=== PATIENT | male | born 1980 | race Caucasian/White ===

== ENCOUNTER 2021-07-25 10:30 | Emergency (ER) | payer MEDICAID, MEDICARE ==
[~2021-07-25] VITALS: Ht 175 cm; Wt 99.7 kg
[~2021-07-25 10:30] MED LIST: AMOX500C2 PO; HYDR1CAP2 PO; IBP800T PO; LEVO500T69 PO; NAPR-243 PO; NEOM10DR11 OT; TRM50T PO
[2021-07-25] MEDS ORDERED: ASPIRIN 81 MG CHEW (CHILDREN'S ASA) ONE (10:42)
[2021-07-25] MEDS ORDERED: KETOROLAC 30 MG/ML VIAL ONE (10:42)
--- NOTE | 2021-07-25 10:44 | ED General ---
General Stated Complaint: CHEST/RIGHT ARM PAIN Source of Information: Patient Exam Limitations: No Limitations History of Present Illness Date Seen by Provider: Jul 25, 2021 Time Seen by Provider: 10:42 Initial Comments To ER with reports of squeezing chest pain for 2 days that now radiates down the right arm. He smokes 1.5 pack of cigarettes per day, chronic cough. No fevers. He is deaf and nonverbal. Timing/Duration: 1-2 Days Severity: Moderate Associated Systoms: Chest Pain Allergies and Home Medications Allergies Coded Allergies: No Known Drug Allergies (Unverified , 12/21/09) Patient Home Medication List Home Medication List Reviewed: Yes Hydrocodone/Acetaminophen (Hydrocodone-Acetamin 5-325 mg) 1 Each Tablet, 1 TAB PO Q4H PRN for PAIN-MODERATE (5-7) Prescribed by: DULCE GEORGE on 07/25/21 1141 Ibuprofen (Motrin) 800 Mg Tab, 800 MG PO TID Prescribed by: HI GILL on 10/26/12 1805 Naproxen (Naprosyn) 500 Mg Tablet, 500 MG PO BID Prescribed by: DULCE GEORGE on 07/25/21 1141 Neomycin Zelaya/Colist/Hc/Thonzon (Cortisporin-Tc Ear Susp) 10 Ml Drops.susp, 10 ML OT QID Prescribed by: HI GILL on 10/26/15 0954 Review of Systems Review of Systems Constitutional: see HPI EENTM: see HPI Respiratory: no symptoms reported Cardiovascular: see HPI, chest pain Genitourinary: no symptoms reported Musculoskeletal: no symptoms reported Skin: no symptoms reported Psychiatric/Neurological: No Symptoms Reported Hematologic/Lymphatic: No Symptoms Reported Immunological/Allergic: no symptoms reported Past Irjrbxz-Zipdnm-Pxbqlb Hx Past Medical History Hearing Impairment: Deaf Physical Exam Vital Signs Vital Signs - First Documented 07/25/21 10:40 Temp 36.9 Pulse 68 Resp 20 B/P (MAP) 125/83 (97) Pulse Ox 98 Capillary Refill : Height, Weight, BMI Height: 5'10" Weight: 200lbs. oz. 90.975420xj; 28.69 BMI Method: General Appearance: No Apparent Distress, WD/WN Eyes: Bilateral Eye Normal Inspection, Bilateral Eye PERRL, Bilateral Eye EOMI HEENT: PERRL/EOMI, TMs Normal Neck: Full Range of Motion, Normal Inspection Respiratory: No Accessory Muscle Use, No Respiratory Distress Cardiovascular: Regular Rate, Rhythm, Normal Peripheral Pulses Gastrointestinal: Normal Bowel Sounds, Non Tender, Soft Extremity: Normal Capillary Refill, Normal Inspection Neurologic/Psychiatric: Alert, Oriented x3 Skin: Normal Color, Warm/Dry Progress/Results/Core Measures Suspected Sepsis SIRS Temperature: Pulse: Respiratory Rate: Laboratory Tests 07/25/21 10:54: White Blood Count 6.4 Blood Pressure / Mean: Laboratory Tests 07/25/21 10:54: Creatinine 1.04, INR Comment 1.0, Platelet Count 212, Total Bilirubin 1.3H Results/Orders Lab Results Laboratory Tests Test 07/25/21 10:54 Range/Units White Blood Count 6.4 4.3-11.0 10^3/uL Red Blood Count 5.29 4.30-5.52 10^6/uL Hemoglobin 16.5 13.3-17.7 g/dL Hematocrit 48 40-54 % Mean Corpuscular Volume 91 80-99 fL Mean Corpuscular Hemoglobin 31 25-34 pg Mean Corpuscular Hemoglobin Concent 34 32-36 g/dL Red Cell Distribution Width 12.5 10.0-14.5 % Platelet Count 212 130-400 10^3/uL Mean Platelet Volume 10.9 9.0-12.2 fL Immature Granulocyte % (Auto) 0 % Neutrophils (%) (Auto) 57 42-75 % Lymphocytes (%) (Auto) 30 12-44 % Monocytes (%) (Auto) 8 0-12 % Eosinophils (%) (Auto) 5 0-10 % Basophils (%) (Auto) 1 0-10 % Neutrophils # (Auto) 3.7 1.8-7.8 10^3/uL Lymphocytes # (Auto) 1.9 1.0-4.0 10^3/uL Monocytes # (Auto) 0.5 0.0-1.0 10^3/uL Eosinophils # (Auto) 0.3 0.0-0.3 10^3/uL Basophils # (Auto) 0.1 0.0-0.1 10^3/uL Immature Granulocyte # (Auto) 0.0 0.0-0.1 10^3/uL Prothrombin Time 13.4 12.2-14.7 SEC INR Comment 1.0 0.8-1.4 Activated Partial Thromboplast Time 27 24-35 SEC Sodium Level 138 135-145 MMOL/L Potassium Level 3.7 3.6-5.0 MMOL/L Chloride Level 105 98-107 MMOL/L Carbon Dioxide Level 24 21-32 MMOL/L Anion Gap 9 5-14 MMOL/L Blood Urea Nitrogen 9 7-18 MG/DL Creatinine 1.04 0.60-1.30 MG/DL Estimat Glomerular Filtration Rate 79 BUN/Creatinine Ratio 9 Glucose Level 108 H 70-105 MG/DL Calcium Level 8.8 8.5-10.1 MG/DL Corrected Calcium 8.7 8.5-10.1 MG/DL Magnesium Level 1.9 1.6-2.4 MG/DL Total Bilirubin 1.3 H 0.1-1.0 MG/DL Aspartate Amino Transf (AST/SGOT) 23 5-34 U/L Alanine Aminotransferase (ALT/SGPT) 36 0-55 U/L Alkaline Phosphatase 73 40-136 U/L Myoglobin 59.4 10.0-92.0 NG/ML Troponin I < 0.028 <0.028 NG/ML Total Protein 6.8 6.4-8.2 GM/DL Albumin 4.1 3.2-4.5 GM/DL My Orders Orders - DULCE GEORGE APRN Cbc With Automated Diff (07/25/21 10:41) Magnesium (07/25/21 10:41) Chest 1 View, Ap/Pa Only (07/25/21 10:41) Ekg Tracing (07/25/21 10:41) Comprehensive Metabolic Panel (07/25/21 10:41) Myoglobin Serum (07/25/21 10:41) Protime With Inr (07/25/21 10:41) Partial Thromboplastin Time (07/25/21 10:41) O2 (07/25/21 10:41) Monitor-Rhythm Ecg Trace Only (07/25/21 10:41) Lipid Panel (07/26/21 06:00) Ed Iv/Invasive Line Start (07/25/21 10:41) Troponin I Baljinder (07/25/21 10:41) Aspirin Chewable Tablet (Baby Aspirin Ch (07/25/21 10:45) Ketorolac Injection (Toradol Injection) (07/25/21 10:45) Aspirin Chewable Tablet (Baby Aspirin Ch (07/25/21 10:42) Ketorolac Injection (Toradol Injection) (07/25/21 10:42) Medications Given in ED Current Medications Medications Dose Ordered Sig/Daja Route Start Time Stop Time Status Last Admin Dose Admin Aspirin 324 mg ONCE ONCE PO 07/25/21 10:45 07/25/21 10:46 DC 07/25/21 10:49 324 MG Ketorolac Tromethamine 15 mg ONCE ONCE IVP 07/25/21 10:45 07/25/21 10:46 DC 07/25/21 10:49 15 MG Vital Signs/I&O 07/25/21 10:40 Temp 36.9 Pulse 68 Resp 20 B/P (MAP) 125/83 (97) Pulse Ox 98 Capillary Refill : Departure Communication (Admissions) Family Conversation NAME: QUOC REYES MED REC#: [id number] PT STATUS: REG ER : 1980 PHYSICIAN: DULCE GEORGE APRN ADMIT DATE: 07/25/21/ER Draft Date of Exam:07/25/21 CHEST 1 VIEW, AP/PA ONLY Indication: Chest pain. Comparison: None. Discussion: Single portable upright view of the chest was obtained. Low lung volumes. Normal heart size. No consolidation, pleural fluid, or pneumothorax. No osseous abnormality. Impression: 1. Negative chest. Dictated on workstation # [id number] Dict: 07/25/21 1112 Trans: 07/25/21 1115 [facility] [id number] Interpreted by: SARA MYERS MD Electronically signed by: EKG shows rate of [address] segment change no ectopy 1138-Toradol took his pain completely away. 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 Movement made the pain worse in his arm. He was tender over the pectoralis muscle. We'll give him a few days off work to rest the arm, naproxen and hydrocodone for pain, Impression Primary Impression: Pectoralis muscle strain Disposition: 01 HOME, SELF-CARE Condition: Stable Departure-Patient Inst. Decision time for Depature: 11:39 Referrals: KIRILL SINGH DO (PCP/Family) Primary Care Physician Patient Instructions: Muscle Strain (DC) Add. Discharge Instructions: 1. Try not to move your right arm much for the next few days. Certainly don't lift anything with it. This is a muscle strain from overuse so the best treatment is rest. Take anti-inflammatories and pain medication as directed. Return to ER for any worsening. Scripts Hydrocodone/Acetaminophen (Hydrocodone-Acetamin 5-325 mg) 1 Each Tablet 1 TAB PO Q4H PRN for PAIN-MODERATE (5-7), #10 TAB Prov: DULCE GEORGE APRN 07/25/21 Naproxen (Naprosyn) 500 Mg Tablet 500 MG PO BID, #30 TAB 0 Refills Prov: DULCE GEORGE APRN 07/25/21 DULCE GEORGE APRN Jul 25, 2021 10:44
[2021-07-25] MEDS ORDERED: KETOROLAC 30 MG/ML VIAL IVP ONE (10:45)
[2021-07-25] MEDS ORDERED: ASPIRIN 81 MG CHEW (CHILDREN'S ASA) PO ONE (10:45)
[2021-07-25 11:01] LABS: BASOPHILS # (AUTO) 0.1 10^3/uL (0.0-0.1); BASOPHILS % (AUTO) 1 % (0-10); EOSINOPHILS # (AUTO) 0.3 10^3/uL (0.0-0.3); EOSINOPHILS % (AUTO) 5 % (0-10); HEMATOCRIT 48 % (40-54); HEMOGLOBIN 16.5 g/dL (13.3-17.7); LYMPHOCYTES # (AUTO) 1.9 10^3/uL (1.0-4.0); LYMPHOCYTES % (AUTO) 30 % (12-44); MEAN CORPUSCULAR HEMOGLOBIN 31 pg (25-34); MEAN CORPUSCULAR HGB CONC 34 g/dL (32-36); MEAN CORPUSCULAR VOLUME 91 fL (80-99); MEAN PLATELET VOLUME 10.9 fL (9.0-12.2); MONOCYTES # (AUTO) 0.5 10^3/uL (0.0-1.0); MONOCYTES % (AUTO) 8 % (0-12); NEUTROPHILS # (AUTO) 3.7 10^3/uL (1.8-7.8); NEUTROPHILS % (AUTO) 57 % (42-75); PLATELET COUNT 212 10^3/uL (130-400); WHITE BLOOD COUNT 6.4 10^3/uL (4.3-11.0)
[2021-07-25 11:12] LABS: ALBUMIN 4.1 GM/DL (3.2-4.5); POTASSIUM 3.7 MMOL/L (3.6-5.0); PROTHROMBIN TIME PATIENT 13.4 SEC (12.2-14.7)
[2021-07-25 11:13] LABS: CALCIUM 8.8 MG/DL (8.5-10.1)
[2021-07-25 11:15] LABS: TOTAL PROTEIN 6.8 GM/DL (6.4-8.2)
--- NOTE | 2021-07-25 11:15 | Diagnostic Imaging Report ---
Indication: Chest pain. Comparison: None. Discussion: Single portable upright view of the chest was obtained. Low lung volumes. Normal heart size. No consolidation, pleural fluid, or pneumothorax. No osseous abnormality. Impression: 1. Negative chest. Dictated by: Dictated on workstation # [id number]
[2021-07-25 11:16] LABS: BILIRUBIN,TOTAL 1.3 MG/DL (0.1-1.0)
[2021-07-25 11:18] LABS: CREATININE SERUM 1.04 MG/DL (0.60-1.30)
[2021-07-25 11:21] LABS: MAGNESIUM 1.9 MG/DL (1.6-2.4)
[2021-07-25] MEDS ORDERED: ACHD5005 PO (11:41)
[2021-07-25] MEDS ORDERED: NAPR-1071 PO (11:41)
[2021-07-25 11:52] VITALS: BP 126/95
== END 2021-07-25 11:51 | disposition home or self-care (01) ==
LOC: EDUNIT# 10:30 → ER 10:34
DX: S29.011A Strain of muscle and tendon of front wall of thorax, initial encounter (principal); F17.210 Nicotine dependence, cigarettes, uncomplicated; X58.XXXA Exposure to other specified factors, initial encounter
CPT/HCPCS: 36415; 71045; 80053; 83735; 83874; 84484; 85025; 85610; 85730; 93005; 93041

== ENCOUNTER 2021-11-07 16:42 | Emergency (ER) | payer MEDICARE ==
[~2021-11-07] VITALS: Ht 179 cm; Wt 90.7 kg
[~2021-11-07 16:42] MED LIST changes: +ACHD5005 PO; +NAPR-1071 PO
--- NOTE | 2021-11-07 17:29 | ED EENT ---
History of Present Illness General Chief Complaint: Abdominal/GI Problems Stated Complaint: VOMITING Nursing Triage Note: PATIENT VOMITTING SINCE TUESDAY. STATES BODY ACHES. EYES "SHIFTY" STATES STARTED A NEW JOB. STATES SYMPTOMS STARTED WITH COUGH, FEVER, NOW VOMITTING. Source: patient Exam Limitations: language barrier (ASL) (JHONNY ORTA MED STUDENT) History of Present Illness Date Seen by Provider: Nov 07, 2021 Time Seen by Provider: 17:10 Initial Comments Mr. Reyes is a 41yo male with PMH of deafness who presents to ED today due to vomiting, cough, fever, and eye complaints. He communicates using ASL and air carrier inspector is used. He states that since tuesday or tuesday he had developed a cough that evolved into vomiting all day on tuesday. He estimates that he has vomited around 20 times. He has never experienced anything like this before. He complains of Fever, body aches, decreased appetite, and feeling sleepy. He also has some eye related complaints that started around the same time. His eyes are "shaky" or "shifty" as he describes. He has pain in the left eye and keeps it closed, only using the R eye during the exam. States there is pain associated, he has photophobia as well. Vision in L eye is blurry, says R eye is good an only experiencing minimal, if any, symptoms. Denies medical or surgical history. Smokes and uses THC about once a week. NKDA (JHONNY ORTA MED STUDENT) Allergies and Home Medications Allergies Coded Allergies: No Known Drug Allergies (Unverified , 12/21/09) Patient Home Medication List Home Medication List Reviewed: Yes (RAMÓN BRUCE MD) Benzonatate (Tessalon Perles) 100 Mg Capsule, 200 MG PO TID Prescribed by: RAMÓN NEWMAN on 11/07/21 1849 Hydrocodone/Acetaminophen (Hydrocodone-Acetamin 5-325 mg) 1 Each Tablet, 1 TAB PO Q4H PRN for PAIN-MODERATE (5-7) Prescribed by: DULCE GEORGE on 07/25/21 1141 Ibuprofen (Motrin) 800 Mg Tab, 800 MG PO TID Prescribed by: HI GILL on 10/26/12 1805 Naproxen (Naprosyn) 500 Mg Tablet, 500 MG PO BID Prescribed by: DULCE GEORGE on 07/25/21 1141 Neomycin Zelaya/Colist/Hc/Thonzon (Cortisporin-Tc Ear Susp) 10 Ml Drops.susp, 10 ML OT QID Prescribed by: HI GILL on 10/26/15 0954 Ondansetron (Ondansetron Odt) 4 Mg Tab.rapdis, 4 MG SL Q4H PRN for NAUSEA/VOMITING Prescribed by: RAMÓN NEWMAN on 11/07/211837 Tobramycin/Dexamethasone (Tobradex Eye Drops) 5 Ml Drops.susp, 2 DROPS OP Q6H Prescribed by: RAMÓN NEWMAN on 11/07/211837 Review of Systems Review of Systems Constitutional: No chills; fever Eyes: Blurred Vision; Denies Foreign Body Sensation; Pain, Photophobia, Vision Changes Ears: Denies Dizziness, Denies Pain Nose: denies pain; other (no discharge) Mouth: denies pain, denies swelling Respiratory: cough; No phlegm, No short of breath Cardiovascular: No chest pain, No edema Gastrointestinal: No abdominal pain, No constipation, No diarrhea, No melena; nausea, vomiting Musculoskeletal: No back pain, No joint pain Skin: No lesions, No rash Neurological: Denies Headache, Denies Numbness (JHONNY ORTA STUDENT) Past Poypwqy-Xzbdpv-Mkwffj Hx Patient Social History Tobacco Use?: Yes Tobacco type used: Cigarettes Smoking Status: Current Everyday Smoker Use of E-Cig and/or Vaping dev: No Substance use?: Yes Substance type: Marijuana Substance frequency: Couple times a week Alcohol Use?: No (JHONNY ORTA) Immunizations Up To Date Influenza Vaccine Up-to-Date: No; Not Current (JHONNY ORTA) Past Medical History Surgery/Hospitalization HX: PATIENT G[facility]KO Hearing Impairment: Deaf (JHONNY ORTA STUDENT) Physical Exam Vital Signs Vital Signs - First Documented 11/07/21 16:59 Temp 36.7 Pulse 91 Resp 18 B/P (MAP) 140/103 (115) Pulse Ox 98 O2 Delivery Room Air (RAMÓN BRUCE MD) Height, Weight, BMI Height: 5'10" Weight: 200lbs. oz. 90.862733vp; 28.00 BMI Method: General Appearance: WD/WN, mild distress (uncomfortable) Ears: bilateral ear auricle normal, bilateral ear canal normal, bilateral ear TM normal Nose: normal inspection; No discharge Mouth/Throat: normal mouth inspection, pharynx normal Cardiovascular: normal peripheral pulses, regular rate, rhythm, no edema, no murmur Respiratory: chest non-tender, lungs clear, normal breath sounds Gastrointestinal: normal bowel sounds, non tender, soft Neurologic/Psychiatric: alert, normal mood/affect, oriented x 3 Skin: normal color, warm/dry (MARIVELJHONNY HAYES MED STUDENT) Progress/Results/Core Measures Results/Orders Lab Results Laboratory Tests Test 11/07/21 17:25 11/07/21 17:33 Range/Units White Blood Count 5.0 4.3-11.0 10^3/uL Red Blood Count 6.16 H 4.30-5.52 10^6/uL Hemoglobin 18.9 H 13.3-17.7 g/dL Hematocrit 55 H 40-54 % Mean Corpuscular Volume 89 80-99 fL Mean Corpuscular Hemoglobin 31 25-34 pg Mean Corpuscular Hemoglobin Concent 35 32-36 g/dL Red Cell Distribution Width 13.0 10.0-14.5 % Platelet Count 190 130-400 10^3/uL Mean Platelet Volume 10.0 9.0-12.2 fL Immature Granulocyte % (Auto) 0 % Neutrophils (%) (Auto) 46 42-75 % Lymphocytes (%) (Auto) 31 12-44 % Monocytes (%) (Auto) 22 H 0-12 % Eosinophils (%) (Auto) 0 0-10 % Basophils (%) (Auto) 0 0-10 % Neutrophils # (Auto) 2.3 1.8-7.8 10^3/uL Lymphocytes # (Auto) 1.6 1.0-4.0 10^3/uL Monocytes # (Auto) 1.1 H 0.0-1.0 10^3/uL Eosinophils # (Auto) 0.0 0.0-0.3 10^3/uL Basophils # (Auto) 0.0 0.0-0.1 10^3/uL Immature Granulocyte # (Auto) 0.0 0.0-0.1 10^3/uL Neutrophils % (Manual) 41 % Lymphocytes % (Manual) 29 % Monocytes % (Manual) 30 % Blood Morphology Comment NORMAL Sodium Level 138 135-145 MMOL/L Potassium Level 3.7 3.6-5.0 MMOL/L Chloride Level 99 98-107 MMOL/L Carbon Dioxide Level 22 21-32 MMOL/L Anion Gap 17 H 5-14 MMOL/L Blood Urea Nitrogen 11 7-18 MG/DL Creatinine 1.00 0.60-1.30 MG/DL Estimat Glomerular Filtration Rate 98 BUN/Creatinine Ratio 11 Glucose Level 103 70-105 MG/DL Calcium Level 9.1 8.5-10.1 MG/DL Corrected Calcium 8.8 8.5-10.1 MG/DL Total Bilirubin 1.1 H 0.1-1.0 MG/DL Aspartate Amino Transf (AST/SGOT) 35 H 5-34 U/L Alanine Aminotransferase (ALT/SGPT) 50 0-55 U/L Alkaline Phosphatase 64 40-136 U/L C-Reactive Protein High Sensitivity 2.53 H 0.00-0.50 MG/DL Total Protein 7.7 6.4-8.2 GM/DL Albumin 4.4 3.2-4.5 GM/DL Lipase 32 8-78 U/L Influenza Type A (RT-PCR) Detected H Not Detecte Influenza Type B (RT-PCR) Not Detected Not Detecte SARS-CoV-2 RNA (RT-PCR) Not Detected Not Detecte Urine Color YELLOW Urine Clarity CLEAR Urine pH 6.0 5-[address] [employer] 1.025 H 1.016-1.022 Urine Protein TRACE H NEGATIVE Urine Glucose (UA) NEGATIVE NEGATIVE Urine Ketones NEGATIVE NEGATIVE Urine Nitrite NEGATIVE NEGATIVE Urine Bilirubin NEGATIVE NEGATIVE Urine Urobilinogen 0.2 < = 1.0 MG/DL Urine Leukocyte Esterase NEGATIVE NEGATIVE Urine RBC (Auto) 1+ H NEGATIVE Urine RBC NONE /HPF Urine WBC 0-2 /HPF Urine Squamous Epithelial Cells NONE /HPF Urine Renal Epithelial Cells NONE /HPF Urine Crystals NONE /LPF Urine Bacteria NEGATIVE /HPF Urine Casts NONE /LPF Urine Mucus MODERATE H /LPF Urine Culture Indicated NO (RAMÓN BRUCE MD) My Orders Orders - RAMÓN BRUCE MD Cbc With Automated Diff (11/07/21 17:21) Comprehensive Metabolic Panel (11/07/21 17:21) Hs C Reactive Protein (11/07/21 17:21) Lipase (4/2/22 17:21) Ua Culture If Indicated (11/07/21 17:21) Ed Iv/Invasive Line Start (11/07/21 17:21) Chest 1 View, Ap/Pa Only (11/07/21 17:21) Tetracaine 0.5% Ophth Rosa Sdv (Tetracai (11/07/21 17:30) Fluorescein Strips (Zpynz-O-Talivk) (11/07/21 17:30) Balanced Salt Irrigation Soln (Bss Irrig (11/07/21 17:30) Ondansetron Injection (Zofran Injectio (11/07/21 17:30) Famotidine Injection (Pepcid Injection) (11/07/21 17:30) Covid 19 Inhouse Test (11/07/21 17:21) Influenza A And B By Pcr (11/07/21 17:21) Fentanyl Inj (Sublimaze Injection) (11/07/21 17:30) Manual Differential (11/07/21 17:25) Lactated Ringers (Lr 1000 Ml Iv Solution (11/07/21 18:00) Erythromycin Ophth Oint (Erythromycin Op (11/07/21 22:00) Benzonatate Capsule (Tessalon Perles) (11/07/21 18:48) Erythromycin Ophth Oint (Erythromycin Op (11/07/21 18:54) (RAMÓN BRUCE MD) Medications Given in ED (RAMÓN BRUCE MD) Vital Signs/I&O 11/07/21 19:16 Temp 36.8 Pulse 88 Resp 18 B/P (MAP) 122/80 Pulse Ox 96 O2 Delivery Room Air (RAMÓN BRUCE MD) Blood Pressure Mean: 115 Progress Progress Note : Time: 18:55 Progress Note Patient was interviewed and examined with the assistance of a video lighting designer. He was given Zofran and fentanyl to treat symptoms. He was hydrated with a liter of LR. He tested positive for influenza A. Left eye was examined after application of tetracaine. Intraocular pressure was 25 by Micheal-Pen. No foreign bodies were appreciated. There was a small slight abrasion at the 11 o'clock position with fluorescein exam. Eye exam findings were discussed with Dr. Manley. He recommended starting the patient on TobraDex and having him follow-up next week. TobraDex was not available in the ER. As an alternative, erythromycin ointment was applied and a prescription for TobraDex was sent in with his other prescriptions. Tessalon Perles were given for cough. Prescriptions were sent to [facility]. Patient was a week into his illness, so Tamiflu was not prescribed. Patient's questions were answered at the time of discharge again using the lighting designer. Work-up was otherwise unremarkable. See discharge instructions for further discussion. (RAMÓN BRUCE MD) Diagnostic Imaging Diagonstic Imaging: Xray Plain Films/CT/US/NM/MRI: chest Comments NAME: QUOC REYES [facility] REC#: [id number] PT STATUS: REG ER : 1980 PHYSICIAN: RAMÓN BRUCE MD ADMIT DATE: 11/07/21/ER Draft Date of Exam:11/07/21 CHEST 1 VIEW, AP/PA ONLY PATIENT HISTORY: Cough. TECHNIQUE: Single frontal view of the chest. COMPARISON: 07/25/2021 FINDINGS: The lung volumes are normal. No focal consolidation is seen. No large pleural effusion or pneumothorax is seen. The cardiomediastinal silhouette is normal in size and contour. No acute osseous abnormality is seen. IMPRESSION: No acute pulmonary abnormality seen. Dictated on workstation # [id number] Dict: 11/07/21 1749 Trans: 11/07/21 1752 CV [id number] Interpreted by: PHILLY DE LA FUENTE MD (RAMÓN BRUCE MD) Departure Impression Primary Impression: Influenza A Additional Impressions: Corneal abrasion Qualified Codes: S05.02XA - Injury of conjunctiva and corneal abrasion without foreign body, left eye, initial encounter Nausea & vomiting Qualified Codes: R11.2 - Nausea with vomiting, unspecified Disposition: 01 HOME, SELF-CARE Condition: Improved Departure-Patient Inst. Decision time for Depature: 18:31 (RAMÓN BRUCE MD) Referrals: ESTRELLA MANLEY OD, ADAM S DO (PCP/Family) Primary Care Physician Patient Instructions: Corneal Abrasion ED, Flu Add. Discharge Instructions: You have influenza A. There is no specific treatment for the flu if symptoms have been present for more than 48 hours. You may take ibuprofen up to 600 mg every 6 hours and/or Tylenol (acetaminophen) up to 1000 mg every 6 hours as needed for pain or fever. You have a small scrape on your left eye called a corneal abrasion. This should heal rapidly on its own. You may use the tetracaine solution provided to help numb your eye. You may use 1 or 2 drops every hour as needed if you have severe discomfort. Antibiotic drops have been prescribed at [facility]. Please start those tomorrow morning when you can pick them up. The pressure in your left eye was also slightly high. You should follow-up with an eye doctor next week to have this checked again and to have your corneal abrasion evaluated again. It is very important that you see an eye doctor within 1 week. If you do not have an eye doctor, please call Dr. Manley's office at the number below to arrange follow-up on Tuesday. Please be sure they are aware you were seen in the emergency room and told to be seen this week by Dr. Manley. Zofran (ondansetron) has been prescribed for nausea and vomiting. Dissolve 1 tablet under your tongue every 4 hours as needed for nausea or vomiting. Return to the ER if you have worsening symptoms. Call with questions or concerns. All discharge instructions reviewed with patient and/or family. Voiced understanding. Scripts Benzonatate (TESSALON PERLES) 100 Mg Capsule 200 MG PO TID for Cough, #20 CAP Prov: RAMÓN BRUCE MD 11/07/21 Ondansetron (Ondansetron Odt) 4 Mg Tab.rapdis 4 MG SL Q4H PRN for NAUSEA/VOMITING, #10 TAB Prov: RAMÓN BRUCE MD 11/07/21 Tobramycin/Dexamethasone (Tobradex Eye Drops) 5 Ml Drops.susp 2 DROPS OP Q6H, #1 EA Prov: RAMÓN BRUCE MD 11/07/21 Work/School Note: Work Release Form Date Seen in the Emergency Department: Nov 07, 2021 Return to Work: Nov 09, 2021 Restrictions: Return-No Fever (24hrs), Return-No Vomiting(24hrs) Medical Student Attestation and Attending Note: I have personally interviewed and examined this patient along with Jhonny Orta, MS 4. I have reviewed student documentation including history, physical, and assessments. I agree with the documentation except where otherwise noted. Exam: General: Alert, oriented, mild acute distress from eye discomfort, well de veloped HEENT: Normocephalic and atraumatic, squinting of the left eye due to irritation, fluorescein exam reveals very subtle abrasion at the 11 o'clock position, intraocular pressure with Micheal-Pen was 25 Heart: Regular rate and rhythm without murmur Lungs: Clear to auscultation bilaterally with normal effort Abdomen: Soft, nontender, nondistended, normal bowel sounds Neuropsych: Alert, oriented, no focal deficits Skin: Warm and dry without rashes (RAMÓN BRUCE MD) Copy Copies To 1: ESTRELLA MANLEY OD Copies To 2: KIRILL SINGH DEREK MED STUDENT Nov 07, 2021 17:29 RAMÓN BRUCE MD Nov 07, 2021 18:36
[2021-11-07] MEDS ORDERED: fentaNYL INJ 100 MCG/2 ML AMP IVP ONE (17:30)
[2021-11-07] MEDS ORDERED: FAMOTIDINE 20MG/2ML IV (PEPCID) IVP ONE (17:30)
[2021-11-07] MEDS ORDERED: ONDANSETRON 4 MG/2 ML (SDV) Z0FRAN IVP ONE (17:30)
[2021-11-07] MEDS ORDERED: BSS 15 ML IR ONE (17:30)
[2021-11-07] MEDS ORDERED: TETRACAINE 0.5% OPHTH SOLN 4 ML BTL (SINGLE DOSE ONLY) OU ONE (17:30)
[2021-11-07] MEDS ORDERED: FLUORESCEIN (FLUOR-I-STRIPS) 1 MG STRP OU ONE (17:30)
[2021-11-07 17:35] LABS: BASOPHILS % (AUTO) 0 % (0-10); EOSINOPHILS % (AUTO) 0 % (0-10); HEMATOCRIT 55 % (40-54); HEMOGLOBIN 18.9 g/dL (13.3-17.7); LYMPHOCYTES # (AUTO) 1.6 10^3/uL (1.0-4.0); LYMPHOCYTES % (AUTO) 31 % (12-44); MEAN CORPUSCULAR HEMOGLOBIN 31 pg (25-34); MEAN CORPUSCULAR HGB CONC 35 g/dL (32-36); MEAN CORPUSCULAR VOLUME 89 fL (80-99); MONOCYTES # (AUTO) 1.1 10^3/uL (0.0-1.0); MONOCYTES % (AUTO) 22 % (0-12); NEUTROPHILS # (AUTO) 2.3 10^3/uL (1.8-7.8); NEUTROPHILS % (AUTO) 46 % (42-75); PLATELET COUNT 190 10^3/uL (130-400)
[2021-11-07 17:38] LABS: BILIRUBIN,URINE NEGATIVE (NEGATIVE); CLARITY,URINE CLEAR; COLOR,URINE YELLOW; GLUCOSE, URINE (UA) NEGATIVE (NEGATIVE); KETONES,URINE NEGATIVE (NEGATIVE); LEUKOCYTE ESTERASE ,URINE NEGATIVE (NEGATIVE); NITRITE,URINE NEGATIVE (NEGATIVE); PROTEIN,URINE TRACE (NEGATIVE)
[2021-11-07 17:42] LABS: ALBUMIN 4.4 GM/DL (3.2-4.5); POTASSIUM 3.7 MMOL/L (3.6-5.0)
[2021-11-07 17:44] LABS: CALCIUM 9.1 MG/DL (8.5-10.1)
[2021-11-07 17:45] LABS: BACTERIA,URINE NEGATIVE /HPF; WBC,URINE 0-2 /HPF
[2021-11-07 17:45] LABS: TOTAL PROTEIN 7.7 GM/DL (6.4-8.2)
[2021-11-07 17:47] LABS: BILIRUBIN,TOTAL 1.1 MG/DL (0.1-1.0)
--- NOTE | 2021-11-07 17:52 | Diagnostic Imaging Report ---
PATIENT HISTORY: Cough. TECHNIQUE: Single frontal view of the chest. COMPARISON: 07/25/2021 FINDINGS: The lung volumes are normal. No focal consolidation is seen. No large pleural effusion or pneumothorax is seen. The cardiomediastinal silhouette is normal in size and contour. No acute osseous abnormality is seen. IMPRESSION: No acute pulmonary abnormality seen. Dictated by: Dictated on workstation # [id number]
[2021-11-07 17:55] LABS: LYMPHOCYTES % (MANUAL) 29 %; MONOCYTES % (MANUAL) 30 %; NEUTROPHILS % (MANUAL) 41 %; RBC MORPH NORMAL
[2021-11-07] MEDS ORDERED: LACTATED RINGERS 1,000 ML IV ONE (18:00)
[2021-11-07] MEDS ORDERED: TOBR5DRO2 OP (18:38)
[2021-11-07] MEDS ORDERED: ONDA4TAB11 SL (18:38)
[2021-11-07] MEDS ORDERED: BENZONATATE 100 MG (TESSALON) CAPSULE PO STA (18:48)
[2021-11-07] MEDS ORDERED: BENZ100C18 PO (18:49)
[2021-11-07] MEDS ORDERED: ERYTHROMYCIN OPHTH OINT 1 GM (SINGLE USE) TUBE OP STA (18:54)
[2021-11-07 19:16] VITALS: BP 122/80
[2021-11-07] MEDS ORDERED: ERYTHROMYCIN OPHTH OINT 1 GM (SINGLE USE) TUBE OP SCH (22:00)
== END 2021-11-07 19:16 | disposition home or self-care (01) ==
LOC: EDUNIT# 16:42 → ER 16:43
DX: S05.02XA Injury of conjunctiva and corneal abrasion without foreign body, left eye, initial encounter (principal); J10.1 Influenza due to other identified influenza virus with other respiratory manifestations; R11.2 Nausea with vomiting, unspecified; F17.210 Nicotine dependence, cigarettes, uncomplicated; Z20.822 Contact with and (suspected) exposure to COVID-19; X58.XXXA Exposure to other specified factors, initial encounter
CPT/HCPCS: 36415; 71045; 80053; 81000; 83690; 85007; 85027; 86141; 87636

== ENCOUNTER 2023-03-01 08:18 | Emergency (ER) | payer MEDICARE ==
[~2023-03-01] VITALS: Ht 175 cm; Wt 91.0 kg
[~2023-03-01 08:18] MED LIST changes: +BENZ100C18 PO; +ONDA4TAB11 SL; +TOBR5DRO2 OP
--- NOTE | 2023-03-01 08:43 | ED GI ---
General Chief Complaint: Abdominal/GI Problems Stated Complaint: DIARRHEA Nursing Triage Note: through sign language, pt states diarrhea for the last few days, pt [place] [address], abd cramping Source of Information: Patient Exam Limitations: No Limitations History of Present Illness Date Seen by Provider: Mar 01, 2023 Time Seen by Provider: 08:29 Initial Comments 42-year-old homeless male who is hearing impaired presents for diarrhea and abdominal cramping. 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 He states he has had loose stools for the last 3 days. The first 2 days he had approximately 8 bouts of loose stool that were nonbloody. Today he has had about 3 bouts already. He denies any fevers or chills. He has diffuse abdominal cramping without any focal tenderness. He has not tried anything for his symptoms as of yet. No sick contacts. No fevers or chills. All other systems reviewed and negative except documented per HPI. Voice recognition software was used to help create this chart Allergies and Home Medications Allergies Coded Allergies: No Known Drug Allergies (Unverified , 12/21/09) Patient Home Medication List Home Medication List Reviewed: Yes Benzonatate (Tessalon Perles) 100 Mg Capsule, 200 MG PO TID Prescribed by: RAMÓN NEWMAN on 11/07/21 184 Hydrocodone/Acetaminophen (Hydrocodone-Acetamin 5-325 mg) 1 Each Tablet, 1 TAB PO Q4H PRN for PAIN-MODERATE (5-7) Prescribed by: DULCE GEORGE on 07/25/21 1141 Ibuprofen (Motrin) 800 Mg Tab, 800 MG PO TID Prescribed by: HI GILL on 10/26/12 1805 Naproxen (Naprosyn) 500 Mg Tablet, 500 MG PO BID Prescribed by: DULCE GEORGE on 07/25/21 1141 Neomycin Zelaya/Colist/Hc/Thonzon (Cortisporin-Tc Ear Susp) 10 Ml Drops.susp, 10 ML OT QID Prescribed by: HI GILL on 10/26/15 0954 Ondansetron (Ondansetron Odt) 4 Mg Tab.rapdis, 4 MG SL Q4H PRN for NAUSEA/VOMITING Prescribed by: RAMÓN NEWMAN on 11/07/21 1838 Tobramycin/Dexamethasone (Tobradex Eye Drops) 5 Ml Drops.susp, 2 DROPS OP Q6H Prescribed by: RAMÓN NEWMAN on 11/07/21 1838 Review of Systems Review of Systems Constitutional: see HPI Past Oieycln-Zvowyj-Qjdjwn Hx Patient Social History Tobacco Use?: Yes Tobacco type used: Cigarettes Smoking Status: Current Everyday Smoker Substance use?: No Alcohol Use?: No Past Medical History Surgery/Hospitalization HX: PATIENT GUANAKO Hearing Impairment: Deaf Physical Exam Vital Signs Vital Signs - First Documented 03/01/23 08:27 Temp 36.3 Pulse 92 Resp 20 B/P (MAP) 132/88 (103) Pulse Ox 96 O2 Delivery Room Air Capillary Refill : Less Than 3 Seconds Height/Weight/BMI Height: 5'10" Weight: 200lbs. oz. 90.889751sd; 29.00 BMI Method: General Appearance: WD/WN, no apparent distress HEENT: normal ENT inspection, pharynx normal Neck: non-tender, supple Respiratory: chest non-tender, lungs clear, normal breath sounds, no respira tory distress, no accessory muscle use Cardiovascular: regular rate, rhythm, no murmur Gastrointestinal: normal bowel sounds, non tender, soft, no organomegaly Extremities: normal inspection, normal capillary refill Back: normal inspection, no CVA tenderness, no vertebral tenderness Neurologic/Psychiatric: alert, normal mood/affect, oriented x 3 Skin: normal color, warm/dry Progress/Results/Core Measures Results/Orders Lab Results Laboratory Tests Test 03/01/23 08:43 Range/Units White Blood Count 10.4 4.3-11.0 10^3/uL Red Blood Count 5.37 4.30-5.52 10^6/uL Hemoglobin 17.0 13.3-17.7 g/dL Hematocrit 49 40-54 % Mean Corpuscular Volume 91 80-99 fL Mean Corpuscular Hemoglobin 32 25-34 pg Mean Corpuscular Hemoglobin Concent 35 32-36 g/dL Red Cell Distribution Width 13.0 10.0-14.5 % Platelet Count 251 130-400 10^3/uL Mean Platelet Volume 10.4 9.0-12.2 fL Immature Granulocyte % (Auto) 0 % Neutrophils (%) (Auto) 63 42-75 % Lymphocytes (%) (Auto) 15 12-44 % Monocytes (%) (Auto) 19 H 0-12 % Eosinophils (%) (Auto) 2 0-10 % Basophils (%) (Auto) 1 0-10 % Neutrophils # (Auto) 6.6 1.8-7.8 10^3/uL Lymphocytes # (Auto) 1.6 1.0-4.0 10^3/uL Monocytes # (Auto) 2.0 H 0.0-1.0 10^3/uL Eosinophils # (Auto) 0.2 0.0-0.3 10^3/uL Basophils # (Auto) 0.1 0.0-0.1 10^3/uL Immature Granulocyte # (Auto) 0.0 0.0-0.1 10^3/uL Sodium Level 138 135-145 MMOL/L Potassium Level 3.6 3.6-5.0 MMOL/L Chloride Level 105 98-107 MMOL/L Carbon Dioxide Level 20 L 21-32 MMOL/L Anion Gap 13 5-14 MMOL/L Blood Urea Nitrogen 6 L 7-18 MG/DL Creatinine 1.02 0.60-1.30 MG/DL Estimat Glomerular Filtration Rate 95 BUN/Creatinine Ratio 6 Glucose Level 120 H 70-105 MG/DL Calcium Level 9.5 8.5-10.1 MG/DL My Orders Orders - BOUCHRA JOYNER DO Basic Metabolic Panel (03/01/23 08:34) Cbc With Automated Diff (03/01/23 08:34) Loperamide Tablet (Imodium Tablet) (03/01/23 08:45) Manual Differential (03/01/23 08:43) Medications Given in ED Current Medications Medications Dose Ordered Sig/Daja Route Start Time Stop Time Status Last Admin Dose Admin Loperamide HCl 4 mg ONCE ONCE PO 03/01/23 08:45 03/01/23 08:46 DC 03/01/23 08:49 4 MG Vital Signs/I&O 03/01/23 08:27 Temp 36.3 Pulse 92 Resp 20 B/P (MAP) 132/88 (103) Pulse Ox 96 O2 Delivery Room Air Blood Pressure Mean: 103 Departure Communication (Admissions) Patient is hemodynamically stable with a normal exam including nonsurgical abdominal exam. Electrolytes obtained which are normal on my independent review. Remainder of his chemistry is normal as well. CBC shows no elevated white blood cell count, no evidence for anemia and his platelets are normal. He will be discharged home in stable condition. He is given p.o. Imodium here and recommended to get [id number]-[id number] Imodium for any continued symptoms. Impression Primary Impression: Diarrhea Qualified Codes: R19.7 - Diarrhea, unspecified Disposition: HOME, SELF-CARE Condition: Stable Departure-Patient Inst. Referrals: KIRILL SINGH DO (PCP/Family) Primary Care Physician Patient Instructions: Diarrhea, Adult ED Add. Discharge Instructions: Get Imodium [id number]-patnnla and use it as needed. You were given your first dose here which should help to decrease the frequency of your stools. Increase your fluids and rest as needed. It is important that you drink more fluids than he normally would to avoid dehydration. Return to the emergency department for any severe concerns. Follow-up with your primary doctor for any nonemergent needs. All discharge instructions reviewed with patient and/or family. Voiced understanding. BOUCHRA JOYNER DO Mar 01, 2023 08:42
[2023-03-01] MEDS ORDERED: LOPERAMIDE 2 MG (IMODIUM) TABLET PO ONE (08:45)
[2023-03-01 08:51] LABS: BASOPHILS # (AUTO) 0.1 10^3/uL (0.0-0.1); BASOPHILS % (AUTO) 1 % (0-10); EOSINOPHILS # (AUTO) 0.2 10^3/uL (0.0-0.3); EOSINOPHILS % (AUTO) 2 % (0-10); HEMATOCRIT 49 % (40-54); LYMPHOCYTES # (AUTO) 1.6 10^3/uL (1.0-4.0); LYMPHOCYTES % (AUTO) 15 % (12-44); MEAN CORPUSCULAR HEMOGLOBIN 32 pg (25-34); MEAN CORPUSCULAR HGB CONC 35 g/dL (32-36); MEAN CORPUSCULAR VOLUME 91 fL (80-99); MEAN PLATELET VOLUME 10.4 fL (9.0-12.2); MONOCYTES % (AUTO) 19 % (0-12); NEUTROPHILS # (AUTO) 6.6 10^3/uL (1.8-7.8); NEUTROPHILS % (AUTO) 63 % (42-75); PLATELET COUNT 251 10^3/uL (130-400); WHITE BLOOD COUNT 10.4 10^3/uL (4.3-11.0)
[2023-03-01 09:01] LABS: POTASSIUM 3.6 MMOL/L (3.6-5.0)
[2023-03-01 09:02] LABS: CALCIUM 9.5 MG/DL (8.5-10.1)
[2023-03-01 09:06] LABS: CREATININE SERUM 1.02 MG/DL (0.60-1.30)
[2023-03-01 09:26] VITALS: BP 130/81
[2023-03-01 09:33] LABS: LYMPHOCYTES % (MANUAL) 10 %; MONOCYTES % (MANUAL) 21 %; NEUTROPHILS % (MANUAL) 60 %
[2023-03-01 09:34] LABS: RBC MORPH NORMAL; REACTIVE LYMPHOCYTES 9 %
== END 2023-03-01 09:27 | disposition home or self-care (01) ==
LOC: EDUNIT# 08:18 → ER 08:20
DX: R19.7 Diarrhea, unspecified (principal); F17.210 Nicotine dependence, cigarettes, uncomplicated
CPT/HCPCS: 36415; 80048; 85007; 85027